=== PATIENT | female | born 1985 | race Caucasian/White ===

== ENCOUNTER 2018-10-18 10:46 | Emergency (ER) | payer OTHER ==
[~2018-10-18] VITALS: Ht 157.5 cm; Wt 140.2 kg
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
[2018-10-18] MEDS ORDERED: KETOROLAC 15 MG/ML VIAL. IM ONE (11:30)
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
[2018-10-18] MEDS ORDERED: MELO7.5T29 PO (13:00)
[2018-10-18] MEDS ORDERED: ORPH-16 PO (13:00)
[2018-10-18 13:15] VITALS: BP 138/83
== END 2018-10-18 13:14 | disposition home or self-care (01) ==
LOC: ER 10:46
DX: S13.9XXA Sprain of joints and ligaments of unspecified parts of neck, initial encounter (principal); M25.512 Pain in left shoulder; F41.9 Anxiety disorder, unspecified; F32.9 Major depressive disorder, single episode, unspecified; I10 Essential (primary) hypertension; V49.49XA Driver injured in collision with other motor vehicles in traffic accident, initial encounter; Y93.I9 Activity, other involving external motion; Y92.488 Other paved roadways as the place of occurrence of the external cause; Y99.8 Other external cause status
CPT/HCPCS: 72125; 81025; 96372; 99284; J1885